=== PATIENT | male | born 1965 | race Caucasian/White ===

== ENCOUNTER 2017-01-31 17:59 | Emergency (ER) | payer OTHER, SELFPAY ==
[2017-01-31 19:12] LABS: HEMOGLOBIN 14.9 gm/dl (14.0-17.5)
[2017-01-31 19:31] LABS: BUN/CREATININE RATIO 17 (0-10)
== END 2017-02-01 01:30 | disposition home or self-care (01) ==
LOC: ER1 17:59
PROVIDERS: Student in an Organized Health Care Education/Training Program
DX: G91.9 Hydrocephalus, unspecified (principal); E86.0 Dehydration; I10 Essential (primary) hypertension; R81 Glycosuria; Z88.8 Allergy status to other drugs, medicaments and biological substances; Z79.899 Other long term (current) drug therapy
CPT/HCPCS: 70450; 80053; 81001; 85025; 87086; 93005; 99284